=== PATIENT | male | born 1945 | race Caucasian/White ===

== ENCOUNTER 2018-09-08 09:02 | Observation (INO) | payer OTHER, MEDICARE ==
[2018-09-08] MEDS ORDERED: ceFAZolin 2 GM/DEXTROSE 100 ML IV ONE (09:12)
[2018-09-08] MEDS ORDERED: LR 1,000 ML IV ONE (09:12)
--- NOTE | 2018-09-08 09:49 | PDHPUP ---
History & Physical Update H&P update statement: This history and physical update is based on an assessment of the patient which was completed after admission or registration (within 24 hours), but prior to the surgery/procedure. H&P update: H&P reviewed & patient examined, no change in patient's condition since H&P completed
--- NOTE | 2018-09-08 09:51 | PDANEPAE ---
ANE History of Present Illness bilateral lap hernia ANE Past Medical History - Cardiovascular History Hx Hypertension: Yes Hx Arrhythmias: No Hx Chest Pain: No Hx Coronary Artery / Peripheral Vascular Disease: No Hx CHF / Valvular Disease: No Hx Palpitations: No Cardiovascular History Comment: hx of dvt after leg surgery 05/2014 mao fixed with surgery and stent - Pulmonary History Hx COPD: No Hx Asthma/Reactive Airway Disease: No Hx Recent Upper Respiratory Infection: No Hx Oxygen in Use at Home: No Hx Sleep Apnea: No Sleep Apnea Screening Result - Last Documented: Positive Pulmonary History Comment: mechelle triggers no dx - Neurologic History Hx Cerebrovascular Accident: No Hx Seizures: No Hx Dementia: No Neurologic History Comment: Neuropathy toes both feet. - Endocrine History Hx Diabetes: Yes Endocrine History Comment: IDDM - Renal History Hx Renal Disorders: Yes Renal History Comment: benign prostate hypertrophy. - Liver History Hx Hepatic Disorders: No - Neurological & Psychiatric Hx Hx Neurological and Psychiatric Disorders: No - Cancer History Hx Cancer: Yes Cancer History Comment: Leiomyosargoma L leg-surg. Chemo july-september 2014. - Congenital Disorder History Hx Congenital Disorders: No - GI History Hx Gastrointestinal Disorders: Yes Gastrointestinal History Comment: POST MALATHI STILL HAS GAS ISSUES. 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 DDD - Chronic Pain History Chronic Pain: Yes (LAURA ING HERNIA,DDD) - Surgical History Prior Surgeries: LT LEG DISTAL FEMUR REVISION 01/2018 AT [facility]. BILATERAL CATARACTS 11/2017. MALATHI FUNDOPLICATION 12/2015. 1952,1956 myopia surg. 1957- tonsils. 1984,1994- R knee scopes. 1988-R ing. hernia. 2012-Lypoma L neck. 2012-Lumbar spine surg. 06/13-L knee & femur resection DUE TO OSTEOSARCOMA WITH POST DVT REQUIRING VASCULAR STENT ANE Review of Systems Review of Systems: - Exercise capacity METS (RN): 4 METS ANE Patient History - Allergies Allergies/Adverse Reactions: No Known Allergies Allergy (Unverified 06/05/09 13:03) - Home Medications Home medications: home medication list seen and reviewed Home Medications: Insulin Lispro [humALOG LISPRO 100 units/ml (*)] 10 unit SC BIDAC 07/22/14 [ Last Taken 09/07/18] amLODIPine BESYLATE [Norvasc 5 mg (*)] 5 mg PO DAILY 07/22/14 [Last Taken ] Atorvastatin Calcium [Lipitor 10 mg (*)] 10 mg PO DAILY 12/10/15 [Last Taken 04/17] Insulin Glargine,Hum.rec.anlog [Ozzy Charissalucila] 30 unit SQ HS 12/10/15 [Last Taken 09/07/18] Naproxen Sodium [Aleve 220 MG (*)] 220 mg PO DAILY PRN 12/10/15 [Last Taken 1 Week Ago ~09/01/18] GAS-X DAILY 09/01/18 [Last Taken 09/07/18] Farxiga 09/08/18 [Last Taken 09/07/18] - NPO status NPO Status: no food or drink >8 hours NPO Since - Liquids (Date): 09/08/18 NPO Since - Liquids (Time): 07:00 NPO Since - Solids (Date): 09/07/18 NPO Since - Solids (Time): 21:00 - Anes Hx Anes Hx: no prior problems - Smoking Hx Smoking Status: Former smoker - Alcohol Use Alcohol Use: Rarely - Family Anes Hx Family Anes Hx: none Family Hx Anesthesia Complications: None ANE Labs/Vital Signs - Vital Signs Blood Pressure: 161/89 Heart Rate: 67 Respiratory Rate: 18 O2 Sat (%): 96 Height: 185.42 cm Weight: 88.451 kg ANE Physical Exam - Airway Neck exam: FROM Mallampati Score: Class 1 Mouth exam: normal dental/mouth exam - Pulmonary Pulmonary: no respiratory distress - Cardiovascular Cardiovascular: regular rate and rhythym - ASA Status ASA Status: II ANE Anesthesia Plan Anesthesia Plan: general endotracheal anesthesia
[2018-09-08] MEDS ORDERED: BUPIVACAINE 0.5% 30 ML SDV ONE ×2 (10:00→10:05)
[2018-09-08] MEDS ORDERED: fentaNYL 100 MCG/2 ML INJ ONE (10:24)
[2018-09-08] MEDS ORDERED: ROCURONIUM 50 MG/5 ML VIAL ONE (10:25)
[2018-09-08] MEDS ORDERED: DEXAMETHASONE 4 MG/ML VIAL ONE (10:25)
[2018-09-08] MEDS ORDERED: PROPOFOL/EMULSION 500 MG/50 ML BOTTLE IV ONE (10:25)
[2018-09-08] MEDS ORDERED: LIDOCAINE 2% 100 MG/5 ML SYR ONE (10:25)
[2018-09-08] MEDS ORDERED: ONDANSETRON 4 MG/2 ML VIAL ONE (10:25)
[2018-09-08] MEDS ORDERED: LIDOCAINE HCL 160 MG/4 ML LTA KIT TP ONE (10:28)
[2018-09-08] MEDS ORDERED: ePHEDrine SULFATE 25 MG/5 ML SYR ONE (10:58)
[2018-09-08] MEDS ORDERED: GLYCOPYRROLATE 0.2 MG/1 ML VIAL ONE ×2 (12:01)
[2018-09-08] MEDS ORDERED: NEOSTIGMINE METHYLSULFATE 5 MG/5 ML SYR ONE (12:01)
[2018-09-08] MEDS ORDERED: NALOXONE HCL 0.4 MG/ML INJ IVP PRN (12:07)
[2018-09-08] MEDS ORDERED: HYDROCODONE/APAP 5/325 TAB PO PRN (12:07)
[2018-09-08] MEDS ORDERED: PROMETHAZINE HCL 25 MG/ML INJ IVP PRN (12:07)
[2018-09-08] MEDS ORDERED: ONDANSETRON 4 MG/2 ML VIAL IVP PRN ×2 (12:07→13:21)
[2018-09-08] MEDS ORDERED: ACETAMINOPHEN 500 MG TAB PO PRN (12:07)
[2018-09-08] MEDS ORDERED: fentaNYL 100 MCG/2 ML INJ IVP PRN (12:07)
[2018-09-08] MEDS ORDERED: DEXAMETHASONE 4 MG/ML VIAL IVP PRN (12:07)
[2018-09-08] MEDS ORDERED: LR 500 ML IV PRN (12:07)
[2018-09-08] MEDS ORDERED: PHENYLEPHRINE HCL 100 MCG/ML SYR IVP PRN (12:07)
[2018-09-08] MEDS ORDERED: LABETALOL HCL 5 MG/ML 20 ML MDV IVP PRN (12:07)
[2018-09-08] MEDS ORDERED: SUGAMMADEX SODIUM 200 MG/2 ML VIAL IVP ONE (12:53)
[2018-09-08] MEDS ORDERED: ALBUTEROL 3 ML DEYVIAL ONE ×2 (12:58→13:13)
[2018-09-08] MEDS: ALBUTEROL 3 ML DEYVIAL IH PRN ×2 (13:01→13:15)
[2018-09-08] MEDS ORDERED: ONDANSETRON DISINTEGRATING 4 MG TAB PO PRN (13:21)
[2018-09-08] MEDS ORDERED: diphenhydrAMINE 25 MG CAP PO PRN (13:21)
[2018-09-08] MEDS ORDERED: ACETAMINOPHEN 325 MG TAB PO PRN (13:21)
[2018-09-08] MEDS ORDERED: HYDROmorphONE/DILAUDID 1 MG/ML INJ ONE (13:58)
[2018-09-08] MEDS: HYDROmorphONE/DILAUDID 2 MG/ML INJ IVP PRN ×2 (14:03→14:15)
[2018-09-08] MEDS ORDERED: D50W 25 GM/50 ML SYR IVP PRN (14:08)
--- NOTE | 2018-09-08 14:10 | PDHOSCONS ---
History and Physical - Chief Complaint Chest pain - History of Present Illness Hospital medicine has been asked by Dr. Elizabeth Christianson to consult the pt d/t chest pains that occurred shortly after awakening from anesthesia. He is s/p bilateral inguinal hernia repair by laparoscopic approach, has no cardiac hx or sx. Per [employer] SUPER[employer], he was slow to wake from anesthesia w/BP systolic being in the 60s/70s. They gave him reversal agent to combat the sedatives and his BP improved however he continued to be hypoxemic on RA and was placed on a mask. This is my first encounter w/the pt, the first time reviewing his past medical history. I, along w/Dr. Nelly Vázquez, were at bedside evaluating the pt and discussing his case w/anesthesiologist, Dr. Sánchez. He continued to complain of 7-8/ 10 mediastinal chest pain which worsened with inspiration and felt the pain radiated bilaterally through his anterior chest wall. During this time his vital signs were stable with blood pressure being 133/62 and 94% on 5 L of oxygen and is heart rate 88. He denied headache or vision changes, endorsed difficulty breathing without pain. Chest x-ray revealed pneumomediastinum and pneumoperitoneum may be within normal limit for immediate postprocedural radiograph, no pneumothorax, bibasilar atelectasis and minimal interstitial edema. It is noted a large pneumoperitoneum large volume and pneumomediastinum with subcutaneous emphysema tracking superiorly into the neck. EKG: Sinus rhythm with no ST elevation or ST depression noted, no evidence of right sided heart strain. Mild elevated troponin bump being 0.55. There was noted to have crepitus superiorly of his clavicles. He also endorsed abdominal distention and tenderness. History Information - Allergies/Home Medication List Allergies/Adverse Reactions: No Known Allergies Allergy (Unverified 06/05/09 13:03) Home Medications: Insulin Lispro [humALOG LISPRO 100 units/ml (*)] 10 unit SC BIDAC 07/22/14 [ Last Taken 09/07/18] amLODIPine BESYLATE [Norvasc 5 mg (*)] 5 mg PO DAILY 07/22/14 [Last Taken ] Atorvastatin Calcium [Lipitor 10 mg (*)] 10 mg PO DAILY 12/10/15 [Last Taken 04/17] Insulin Glargine,Hum.rec.anlog [Ozzy Gaming] 30 unit SQ HS 12/10/15 [Last Taken 09/07/18] Naproxen Sodium [Aleve 220 MG (*)] 220 mg PO DAILY PRN 12/10/15 [Last Taken 1 Week Ago ~09/01/18] Farxiga 09/08/18 [Last Taken 09/07/18] Herbals/Supplements -Info Only 1 ea PO DAILY 09/08/18 [Last Taken 09/07/18] I have personally reviewed and updated: family history, medical history, social history, surgical history Past Medical History: Diabetes type 2, leiomyosarcoma, deep vein thrombosis, hernia, hypertension - Surgical History Additional surgical history: Abdominal surgery - Kari fundoplication 2015, right distal femur replacement 2014, back surgery 2012, tonsillectomy - Family History Positive for: cancer, CAD - Social History Smoking Status: Light smoker Tobacco Use: Cigar Alcohol Use: Occasionally Drug Use: None Additional social history: Retired CPA, likes to play golf, is planning to go to [place] at the end of September Review of Systems Review of Systems: ROS: 10pt was reviewed & negative except for what was stated in HPI & below Physical Exam Physical Exam: Lab data and imaging reviewed. Dr. Nelly Vázquez and myself at beside. I spoke to Dr. Sánchez (anesthesiologist) and PA about pt's presenting condition. Chest x-ray: Pneumomediastinum and pneumoperitoneum may be within normal limit for immediate postprocedural radiograph, no pneumothorax, bibasilar atelectasis and minimal interstitial edema. It is noted a large pneumoperitoneum large volume and pneumomediastinum with subcutaneous emphysema tracking superiorly into the neck EKG: Sinus rhythm with no ST elevation or ST depression noted, no evidence of right sided heart strain White blood cell count: 11.64 Hemoglobin and hematocrit: 19.7 and 55.9 Platelet count: 139 Sodium: 139 Potassium: 4.3 Chloride: 105 Carbon dioxide:24 BUN/Cr: 20/0.9 Troponin: 0.055 Temp Pulse Resp BP Pulse Ox 36.8 C 67 16 128/60 H 93 09/08/18 12:16 09/08/18 10:26 09/08/18 14:01 09/08/18 14:01 09/08/18 14:01 O2 (L/minute) 5 Constitutional: uncomfortable Eyes: PERRL, anicteric sclera, EOMI Ears, Nose, Mouth, Throat: hearing normal, ears appear normal, no oral mucosal ulcers, dry mucous membranes Cardiovascular: regular rate and rhythym, no murmur, rub, or gallop, No edema Peripheral Pulses: 2+: dorsalis-pedis (R), dorsalis-pedis (L) Respiratory: reduced air movement, other (noted crepitus superior of clavicle and superior anterior chest wall) Gastrointestinal: tenderness, other (Hypoactive BS) Genitourinary: no bladder fullness, no bladder tenderness Skin: warm, normal color, no rashes or abrasions, no fluctuance, no induration, No mottled Musculoskeletal: full muscle strength, no muscle tenderness, normal joint ROM, no joint effusions, other (Right lower extremity normally reduced/weaker motor movements due to 2015 surgery (distal femur)) Neurologic: AAOx3, sensation intact bilaterally, CN II-XII Intact Psychiatric: interacting appropriately, not anxious, not encephalopathic, thought process linear Lymph, Heme, Immunologic: no cervical LAD, no supraclavicular LAD Lab Data & Imaging Review 09/08/18 13:17 09/08/18 13:07 WBC 11.64 10^3/uL (3.80-9.50) H 09/08/18 13:17 RBC 5.96 10^6/uL (4.40-6.38) 09/08/18 13:17 Hgb 19.7 g/dL (13.7-17.5) H 09/08/18 13:17 Hct 55.9 % (40.0-51.0) H 09/08/18 13:17 MCV 93.8 fL (81.5-99.8) 09/08/18 13:17 MCH 33.1 pg (27.9-34.1) 09/08/18 13:17 MCHC 35.2 g/dL (32.4-36.7) 09/08/18 13:17 RDW 13.8 % (11.5-15.2) 09/08/18 13:17 Plt Count 139 10^3/uL (150-400) L 09/08/18 13:17 Sodium 139 mEq/L (135-145) 09/08/18 13:07 Potassium 4.3 mEq/L (3.5-5.2) 09/08/18 13:07 Chloride 105 mEq/L (97-110) 09/08/18 13:07 Carbon Dioxide 24 mEq/l (22-31) 09/08/18 13:07 Anion Gap 10 mEq/L (6-14) 09/08/18 13:07 BUN 20 mg/dL (7-23) 09/08/18 13:07 Creatinine 0.9 mg/dL (0.7-1.3) 09/08/18 13:07 Estimated GFR > 60 09/08/18 13:07 Glucose 135 mg/dL (70-100) H 09/08/18 13:07 POC Glucose 127 mg/dL (70-100) H 09/08/18 12:23 Calcium 9.1 mg/dL (8.5-10.4) 09/08/18 13:07 Troponin I 0.055 ng/mL (0.000-0.034) H 09/08/18 13:07 Assessment & Plan Plan: This is a 73-year-old male status post day 0 bilateral inguinal hernial repair with laparoscopic approach. Incision sites are clean dry and intact. Hospital Medicine was asked to consult due to patient's acute onset of mediastinum chest pain. Patient does have a history of a hiatal hernia and it appears the carbon dioxide used for the surgery has leaked a large pneumoperitoneum large volume and a pneumomediastinum with subcutaneous emphysema tracking superiorly into the neck that is most likely causing this acute chest pain. In any event, we will work the patient up to ensure no acute cardiac damage is occurring. His vital signs are the following: Blood pressure 128/60, heart rate 67, respirations 16, oxygen saturation 93% on 5 L nasal cannula. # Status post surgery chest pain -Initial troponin has a mild bump 0.55; I suspect this is due to the gas pushing up onto his heart. We will continue to cycle troponins every 6 hr twice and monitor any further elevation -Repeat EKG at EKG later tonight and then p.r.n. symptoms worsen -Xanax twice daily p.r.n. and Dilaudid IV push p.r.n. For pain management -Encourage ambulation ad asim -Continuous tele and pulse ox monitoring Diet: Regular Code: Full VTE ppx: OOB ad asim Dispo: Admit to obs
--- NOTE | 2018-09-08 14:31 | GHP ---
[f rep st] HISTORY AND PHYSICAL DATE OF ADMISSION: 09/08/2018 HPI: Ac is a 73-year-old male POD#0 status post laparoscopic bilateral inguinal hernia repair with mesh. Operative course was unremarkable. However, in PACU, patient was briefly hypotensive (down to 63/43) with saturations in the high 80s/low 90s, for which he was given ephedrine by Anesthesia with significant improvement. On awakening, patient began to complain of severe "tight" chest pain, 7/10 on the pain scale. EKG, CXR and labs ordered. Abdominal pain controlled. 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 Specifically, no past medical history of PE, coronary artery disease, OR, hyperlipidemia, structural or ischemic heart disease. PAST SURGICAL HISTORY: Bilateral cataract repair in 2017; Kari fundoplication in 2015; distal femur replacement in 2014; back surgery, 2012; lipoma removal, 2012; meniscus repair in 1995, 1988; hernia repair, right side, 1989; tonsillectomy, 1958. HOME MEDICATIONS: Amlodipine 5 mg daily, Lantus 20 units subcutaneous twice daily, fenofibrate 160 mg by mouth every day, baby aspirin 1 daily, Lotensin 40 mg daily. Lovastatin 20 mg at night, Apidra 10 units subcutaneous twice daily. ALLERGIES: No known drug allergies. FAMILY MEDICAL HISTORY: Significant for heart disease of father and mother who are both . SOCIAL HISTORY: Denies use of alcohol or recreational drugs. Is a former smoker of 54 years. Pack-years unknown. Currently drinks 2 cups of coffee per day. REVIEW OF SYSTEMS: He denies fevers, chills, headaches, nausea, vomiting, constipation, diarrhea. Otherwise, per HPI. PHYSICAL EXAM: GENERAL: Pleasant, well-nourished man, uncomfortable in moderate distress. HEENT: Normocephalic. No gross hearing deficits. Mucous membranes moist. No scleral icterus. No injection. Pupils are equal in size. LUNGS: Poor inspiratory effort, clear anteriorly. No increased work of breathing at the time of this writing. CARDIAC: Regular rate and rhythm. No murmurs, rubs, gallops. ABDOMEN: Soft, appropriately tender, nondistended. SKIN: incisions clean, dry and intact. RESULTS REVIEWED: Prelim review of EKG is normal and CXR shows pneumoperitoneum and pneumomediastinum. Labs pending. ASSESSMENT AND PLAN: This is a 73-year-old male status post laparoscopic bilateral inguinal hernia repair with mesh, who has experienced postoperative chest pain. At this point, normal EKG and chest x-ray showing pneumoperitoneum. Consult with hospitalists for additional work-up of chest pain. Plan to admit overnight for observation. Case discussed by phone with Dr. Christianson. Discussed with Yadira Parnell NP and Dr. Donal Sánchez. /[id number]/MODL MTDD
--- NOTE | 2018-09-08 14:46 | ASMTCMCOM ---
CM Note CM Note Notes: Patient admitted for laparoscopic bilateral inguinal hernia repair. Post-operatively he experienced some chest pain and is being observed overnight for this. He is normally independent and lives with his . I do not anticipate any d/c needs. Date Signed: 09/08/2018 02:44 PM Electronically Signed By:Jeane Driscoll RN
[2018-09-08] MEDS ORDERED: ALPRAZolam 0.25 MG TAB PO PRN (15:54)
[2018-09-08] MEDS: INSULIN LISPRO 100 UNIT/ML SC SCH (17:24)
[2018-09-08] MEDS: amLODIPine BESYLATE 5 MG TAB PO SCH (17:24)
--- NOTE | 2018-09-08 17:51 | CPEKG ---
Test Reason : OPEN Blood Pressure : / mmHG Vent. Rate : 069 BPM Atrial Rate : 069 BPM P-R Int : 175 ms QRS Dur : 097 ms QT Int : 418 ms P-R-T Axes : 064 088 109 degrees QTc Int : 448 ms Sinus rhythm Probable left atrial enlargement Borderline right axis deviation Borderline T abnormalities, lateral leads Confirmed by Kirk Beckford ([id number]) on 09/08/2018 5:50:44 PM Referred By: Elizabeth Christianson Confirmed By:Kirk Beckford
--- NOTE | 2018-09-08 17:58 | SOAPPROG ---
SOAP Progress Note Assessment/Plan: Assessment/Plan: 73yo M POD#0 s/o lap B inguinal hernia repair with mesh. Post- op chest pain Evaluated this evening appx 5pm - dramatically better than post-op. Pain 5/10. Improved breathing. On 1L O2. VSS CXR - pneumoperitoneum and pneumomediastinum likely related to lap surgery. Should resolve with time. Labs OK - trend troponins Appreciate hospitalist input Cont home meds 09/08/18 17:58 Objective: Vital Signs Temp Pulse Resp BP Pulse Ox 36.4 C 94 20 145/77 H 92 09/08/18 14:38 09/08/18 14:38 09/08/18 14:38 09/08/18 14:38 09/08/18 16:47 Laboratory Results 09/08/18 13:17 09/08/18 13:07 09/07/18 09/08/18 09/09/18 05:59 05:59 05:59 Intake Total 1560 Output Total 0 Balance 1560 ICD10 Worksheet Patient Problems: Problems Problem Status Onset DVT (deep venous thrombosis) Acute
--- NOTE | 2018-09-08 18:22 | SOAPPROG ---
SOAP Progress Note Assessment/Plan: Assessment: Acute CP, postop Pneumomediastinum, postop Pneumoperitoneum, postop Acute hypoxemic respiratory failure, postop - improving Troponinemia, mild, likely 2/2 above Postoperative complications Bilateral inguinal hernia, s/p repair POD 0 Leukocytosis, mild, reactive to surgery H/o hiatal hernia, s/p failed Kari fundoplication (per patient) H/o leiomyosarcoma of RLE, s/p Tx H/o DVT a/w cancer in RLE Gait abnormality/RLE weakness, chronic Plan: -Please refer to H&P by Yadira Parnell [employer]ER from earlier today. I have discussed the case with Noelle Parnell and w/ Dr. Christianson. -O2 as needed. -Trend trops. Monitor on telemetry. If any cardiac changes are noted, pt would benefit from Cardiology consultation. -prn analgesics. -Explained to patient and his about the condition. Discussed results of CXR that there is no pneumothorax. It is unlikely that he has developed a PE all of a sudden and the most obvious explanation is gas bubbles seen on imaging and noted on physical exam (crepitus of R neck/thoracic outlet area). Expect symptoms to resolve overnight. -Observe in hospital overnight - alert physician if pt desaturates or requires increased O2 -- recommend to get stat CXR 2 view or CTA chest if this occurs. -VTE ppx - Lovenox. -Code status - full. Observation status. 09/08/18 18:28 Objective: Vital Signs Temp Pulse Resp BP Pulse Ox 36.4 C 94 20 145/77 H 92 09/08/18 14:38 09/08/18 14:38 09/08/18 14:38 09/08/18 14:38 09/08/18 16:47 Laboratory Results 09/08/18 13:17 09/08/18 13:07 09/07/18 09/08/18 09/09/18 05:59 05:59 05:59 Intake Total 1800 Output Total 0 Balance 1800 ICD10 Worksheet Patient Problems: Problems Problem Status Onset DVT (deep venous thrombosis) Acute
[2018-09-08] MEDS ORDERED: INSULIN GLARGINE 100 UNITS/ML UNIT SC SCH (21:00)
[2018-09-08] MEDS: SIMETHICONE 80 MG TAB CHEW PO SCH ×2 (22:41→22:42)
[2018-09-09] MEDS: HYDROCODONE/APAP 5/325 TAB PO PRN ×2 (01:42→09:37)
[2018-09-09 08:20] VITALS: BP 130/79
[2018-09-09] MEDS ORDERED: amLODIPine BESYLATE 5 MG TAB PO SCH (09:00)
[2018-09-09] MEDS ORDERED: ATORVASTATIN CALCIUM 10 MG TAB PO SCH (09:00)
[2018-09-09] MEDS ORDERED: ENOXAPARIN 40 MG/0.4 ML SYR SC SCH (09:00)
--- NOTE | 2018-09-09 09:02 | PDDCSUM ---
Discharge Summary Discharge Summary: Date of Admission: 09/08/2018 Date of Discharge: 09/09/2017 Discharge Diagnoses: Pneumomediastinum/pneumoperitoneum, resolved Postoperative complication, resolved Acute hypoxemic respiratory failure, resolved Chest pain, resolved Bilateral inguinal hernia, status post repair postoperative day 1 Admission Diagnoses: Acute CP, postop Pneumomediastinum, postop Pneumoperitoneum, postop Acute hypoxemic respiratory failure, postop - improving Troponinemia, mild, likely 2/2 above Postoperative complications Bilateral inguinal hernia, s/p repair POD 0 Leukocytosis, mild, reactive to surgery H/o hiatal hernia, s/p failed Kari fundoplication (per patient) H/o leiomyosarcoma of RLE, s/p Tx H/o DVT a/w cancer in RLE Gait abnormality/RLE weakness, chronic Consultants: General surgery-Dr. Elizabeth Christianson [facility] Course: The patient is a 73-year-old male who presented with acute pleuritic chest pain , hypoxemia, and tachycardia following a routine elective bilateral inguinal hernia repair surgery. The surgery itself had no immediate complications. The patient was noted to have some crepitus of the skin following surgery. Chest x- ray revealed some gas bubbles in the mediastinum and peritoneum. With patient' s history of a failed Kari fundoplication, it is suspected that some of the insufflated abdominal gas had traveled superiorly through a diaphragmatic defect. Patient was admitted for observation and received supplemental oxygen, analgesics as needed, and close monitoring. His symptoms subsided within a few hours. The next day the patient was feeling well, aside from expected postoperative pain, and was discharged to home in stable condition. Physical Exam: Gen - alert, oriented, in NAD. CV: RRR no MRG. Resp: CTAB no RRW. Skin: no crepitus palpated. MSK: ambulating. Condition: Stable. Discharged to: Home. Pertinent tests/labs/imaging: Chest x-ray- 1. Pneumomediastinum and pneumoperitoneum may be within normal limit for immediate post procedural radiograph. Please correlate with intraperitoneal extent of surgery. 2. No pneumothorax. 3. Bibasilar atelectasis and minimal interstitial edema. Medications: Please see med rec form. Resume home medications. New medication- oxycodone IR 5-10mg po q5h prn pain #30. Special instructions: Avoid heavy lifting, pushing or pulling >15lbs x 2 weeks. May shower tomorrow. Avoid swimming pools, hot tubs or tub baths x 2 weeks. FU in 2 weeks. Call our office with worsening symptoms, questions or concerns. Return to the hospital for concerning symptoms such as chest pain, difficulty breathing, or fainting. Follow up: Follow-up with PCP Dr. Soila Kent in 2 weeks. Follow up with general surgeon Dr. Elizabeth Christianson in 2 weeks.
--- NOTE | 2018-09-09 09:06 | ASMTLACE ---
LACE Length of stay for Answers: 1 day current admission Acuity / Level of Answers: No Care: Did the patient have an inpatient admission? Comorbidities - select Answers: Any tumor (including all that apply lymphoma or leukemia) Diabetes (uncontrolled or controlled) Other Notes: HTN # of Emergency department Answers: 0 visits in the last 6 months Score: 5 Date Signed: 09/09/2018 09:05 AM Electronically Signed By:Jeane Driscoll RN
[2018-09-09] MEDS: SIMETHICONE 80 MG TAB CHEW PO SCH (09:29)
[2018-09-09] MEDS: amLODIPine BESYLATE 5 MG TAB PO SCH (09:29)
[2018-09-09] MEDS: INSULIN LISPRO 100 UNIT/ML SC SCH (09:31)
--- NOTE | 2018-09-09 10:02 | SOAPPROG ---
SOAP Progress Note Assessment/Plan: Assessment/Plan: 73 Y M s/p BIH repair c subsequent CP. POD#1. Doing well. Suspect pain 2/2 CO2 insufflation. Trops ok. EKG ok. Pain resolved. Seen and examined c medicine. D/c to home. alert, nad ctab rrr abd soft, inc cdi 09/09/18 10:01 Objective: Vital Signs Temp Pulse Resp BP Pulse Ox 36.7 C 72 16 130/79 H 95 09/09/18 08:16 09/09/18 08:16 09/09/18 08:16 09/09/18 08:16 09/09/18 08:16 Laboratory Results 09/08/18 13:17 09/08/18 13:07 09/08/18 09/09/18 09/10/18 05:59 05:59 05:59 Intake Total 2150 Output Total 0 Balance 2150 ICD10 Worksheet Patient Problems: Problems Problem Status Onset DVT (deep venous thrombosis) Acute
--- NOTE | 2018-09-10 08:00 | POSTANESTH ---
Post Anesthetic Evaluation Cardiovascular Status: Normal, Stable Respiratory Status: Normal, Stable Level of Consciousness/Mental Status: Can Participate in Eval Pain Control: Adequate, Prn Tx Ordered Nausea/Vomiting Control: Adequate, Prn Tx Ordered Complications Possibly Related to Anesthesia: None Noted
== END 2018-09-09 11:26 | disposition home or self-care (01) ==
LOC: FSGY 09:02 → F3E 13:20 → F2W 14:25
PROVIDERS: ADMIT Physician Assistant Surgical; ATTEND Internal Medicine
PROC: 0YUA4JZ Supplement Bilateral Inguinal Region with Synthetic Substitute, Percutaneous Endoscopic Approach (ICD-10-PCS; principal; 2018-09-08 10:45)
DX: J98.8 Other specified respiratory disorders (principal); R07.81 Pleurodynia; J95.821 Acute postprocedural respiratory failure; K40.21 Bilateral inguinal hernia, without obstruction or gangrene, recurrent; D72.829 Elevated white blood cell count, unspecified; Z86.718 Personal history of other venous thrombosis and embolism; R26.9 Unspecified abnormalities of gait and mobility; Z85.89 Personal history of malignant neoplasm of other organs and systems; E11.9 Type 2 diabetes mellitus without complications; Z79.4 Long term (current) use of insulin
CPT/HCPCS: 49651; 71045; 93005; C1727; C1781; J0690; J1100; J1170; J1650; J1815; J2001; J2405; J2704; J2710; J3010; J7613